=== PATIENT | female | born 1975 | race Two or more races ===

== ENCOUNTER 2020-07-27 12:59 | Emergency (ER) | payer SELFPAY ==
[~2020-07-27] VITALS: Ht 152.4 cm; Wt 61.1 kg
[2020-07-27] MEDS ORDERED: ONDANSETRON ODT 4 MG ONE (13:32)
--- NOTE | 2020-07-27 13:37 | NUR ---
preceptor note. this is a 45 year old female who is [place] speaking only with medical hx of fibromyalgia and iron defeicient enemia. pt presents to the er 5 weeks post covid with pain that starts in here upper left chest that radiates to her left jaw. pt also states pain increases with movement of head. md at bedside to assess pt, ekg performed, pt placed on cardiac, nibp, and o2 monitoring. labs completed and pt medicated per verbal order of
[2020-07-27 13:49] LABS: BASOPHILS % (AUTO) 1 % (0-1); EOSINOPHILS % (AUTO) 1 % (1-7); LYMPHOCYTES % (AUTO) 43 % (22-44); MEAN CORPUSCULAR HEMOGLOBIN 29.2 pg (27.0-34.8); MEAN CORPUSCULAR HGB CONC 33.3 g/dL (32.4-35.8); MEAN PLATELET VOLUME 8.6 fL (7.4-10.4); MONOCYTES % (AUTO) 9 % (2-9); NEUTROPHILS % (AUTO) 48 % (42-75); PLATELET COUNT 307 x10^3/uL (130-400); RED BLOOD COUNT 4.46 x10^6/uL (3.82-5.3); RED CELL DISTRIBUTION WIDTH 17.4 % (9.6-15.2)
[2020-07-27 13:50] LABS: MD NO
[2020-07-27 13:58] LABS: ALBUMIN 4.2 g/dL (3.4-5.0); ANION GAP 7 mmol/L (5-15); CALCIUM 8.7 mg/dL (8.5-10.1); CHLORIDE 106 mmol/L (98-107); CREATININE 0.72 mg/dL (0.55-1.02)
[2020-07-27] MEDS ORDERED: KETOROLAC 30 MG/1 ML IM ONE (14:00)
[2020-07-27] MEDS ORDERED: ONDANSETRON ODT 4 MG PO ONE (14:00)
[2020-07-27 14:02] LABS: TROPONIN I < 0.015 ng/mL (0.000-0.045)
[2020-07-27] MEDS ORDERED: KETOROLAC 60 MG/2 ML ONE (14:02)
--- NOTE | 2020-07-27 14:09 | NUR ---
admin im pain meds, no distress
[2020-07-27] MEDS ORDERED: SODIUM CHLORIDE FLUSH 10ML SYR IVF ONE (15:00)
--- NOTE | 2020-07-27 15:36 | NUR ---
preceptor note. difficulty obtaining iv access for cta. iv access obtained in right ej after pt informed and agreed to iv. pt taken to ct now
--- NOTE | 2020-07-27 15:42 | NUR ---
pt to cta
[2020-07-27 15:53] VITALS: BP 116/79
[2020-07-27] MEDS ORDERED: OMNIPAQUE 350 MG/ML, 75ML BOTTLE ONE (15:54)
--- NOTE | 2020-07-27 15:54 | NUR ---
BREAK RN: PT BACK FROM CT.
== END 2020-07-27 17:11 | disposition home or self-care (01) ==
LOC: ED 16:30
DX: S29.011A Strain of muscle and tendon of front wall of thorax, initial encounter (principal); M79.7 Fibromyalgia; X58.XXXA Exposure to other specified factors, initial encounter; Y93.89 Activity, other specified; Y92.89 Other specified places as the place of occurrence of the external cause; Y99.8 Other external cause status
CPT/HCPCS: 36415; 71045; 71275; 80048; 82040; 83880; 84484; 85025; 85379; 93005; 96372; 99285; J1885; Q0162; Q9967

== ENCOUNTER 2020-12-25 22:02 | Emergency (ER) | payer SELFPAY ==
[~2020-12-25] VITALS: Ht 160 cm; Wt 63.8 kg
[2020-12-25 22:12] VITALS: BP 152/88
--- NOTE | 2020-12-25 22:26 | NUR ---
ERP TO BEDSIDE FOR EVAL
[2020-12-25] MEDS ORDERED: KETOROLAC 30 MG/1 ML IM ONE (22:30)
[2020-12-25] MEDS ORDERED: ACETAMINOPHEN 325 MG TABLET PO ONE (22:30)
[2020-12-25] MEDS ORDERED: KETOROLAC 30 MG/1 ML ONE (22:43)
[2020-12-25] MEDS ORDERED: ACETAMINOPHEN 500 MG TABLET ONE (22:44)
--- NOTE | 2020-12-25 22:48 | NUR ---
PT MEDICATED PER MAR
[2020-12-25 23:04] LABS: BASOPHILS % (AUTO) 1 % (0-1); EOSINOPHILS % (AUTO) 1 % (1-7); LYMPHOCYTES % (AUTO) 39 % (22-44); MEAN CORPUSCULAR HEMOGLOBIN 31.9 pg (27.0-34.8); MEAN CORPUSCULAR HGB CONC 34.5 g/dL (32.4-35.8); MEAN PLATELET VOLUME 9.2 fL (7.4-10.4); MONOCYTES % (AUTO) 8 % (2-9); NEUTROPHILS % (AUTO) 51 % (42-75); PLATELET COUNT 252 x10^3/uL (130-400); RED CELL DISTRIBUTION WIDTH 13.6 % (9.6-15.2)
[2020-12-25 23:15] LABS: ALBUMIN 3.6 g/dL (3.4-5.0); ANION GAP 8 mmol/L (5-15); CALCIUM 8.7 mg/dL (8.5-10.1); CHLORIDE 109 mmol/L (98-107); CREATININE 0.52 mg/dL (0.55-1.02)
[2020-12-25 23:19] LABS: TROPONIN I < 0.015 ng/mL (0.000-0.045)
--- NOTE | 2020-12-26 00:21 | NUR ---
Patient/Caregiver given discharge instructions and they have confirmed that they understand the instructions. Patient ambulatory with steady gait. NAD, all questions answered appropriately, denies additional needs at this time. No personal belongings left in room after discharge.
== END 2020-12-26 00:23 | disposition home or self-care (01) ==
LOC: ED 23:32
DX: S46.811A Strain of other muscles, fascia and tendons at shoulder and upper arm level, right arm, initial encounter (principal); R07.89 Other chest pain; R94.31 Abnormal electrocardiogram [ECG] [EKG]; X58.XXXA Exposure to other specified factors, initial encounter; Y93.89 Activity, other specified; Y92.89 Other specified places as the place of occurrence of the external cause; Y99.8 Other external cause status
CPT/HCPCS: 36415; 71045; 80048; 82040; 83880; 84484; 84703; 85025; 93005; 96372; 99285; J1885

== ENCOUNTER 2021-03-05 10:36 | Outpatient (CLI) | payer MEDICAID | END 2021-03-05 23:59 | disposition home or self-care (01) | LOC: CARD 10:36 | PROVIDERS: ATTEND Nuclear Medicine Nuclear Cardiology | DX: R07.9 Chest pain, unspecified (principal) | CPT/HCPCS: 93017 ==